=== PATIENT | female | born 1980 | race Caucasian/White ===

== ENCOUNTER 2017-02-26 14:27 | Emergency (ER) | payer SELFPAY ==
[2017-02-26 15:34] LABS: BACTERIA,URINE MOD /HPF (0-FEW); BILIRUBIN,URINE NEG (NEG); CLARITY,URINE HAZY; COLOR,URINE YELLOW; GLUCOSE,URINE NEG (NEG); NITRITE,URINE NEG (NEG); UROBILINOGEN,URINE 0.2 mg/dL (0.2 mg/dL); WBC,URINE >40 /HPF (0-4)
[2017-02-26 15:35] LABS: SQUAMOUS EPITHELIAL CELL,UR FEW /LPF; TRICHOMONAS,URINE PRESENT
[2017-02-26 15:54] VITALS: BP 127/73
[2017-02-26] MEDS ORDERED: LEVO500T59 PO (16:03)
[2017-02-26] MEDS ORDERED: PHEN100T82 PO (16:03)
--- NOTE | 2017-02-26 16:05 | PHYS DOC ---
General Chief Complaint: PAIN ON URINATION Stated Complaint: PAIN ON URINATION Time Seen by MD: 15:54 Problems: Departure Time of Disposition: 16:04 Disposition: 01 HOME, SELF-CARE Diagnosis: pyelonephritis Condition: STABLE Patient Instructions: Pyelonephritis, Adult, [id number] Additional Instructions: Aggressive hydration with Gatorade or water. [id number] Tylenol and ibuprofen as needed. Prescription: Levaquin, Pyridium Take meds with food. Follow-up with your doctor in 10-14 days for recheck and to go over urine culture results. Return to ED with new or changing symptoms. COMFORT OBRIEN DO Feb 26, 2017 16:05
[2017-02-26] MEDS ORDERED: PHENAZOPYRIDINE 200 MG TABLET. PO ONE (16:15)
[2017-02-26] MEDS ORDERED: ONDANSETRON ODT 4 MG TAB.RAPDIS PO ONE (16:15)
[2017-02-26] MEDS ORDERED: levoFLOXacin 500 MG TABLET PO ONE (16:15)
[2017-02-26] MEDS ORDERED: levoFLOXacin 500 MG TABLET ONE (16:34)
[2017-02-26] MEDS ORDERED: ONDANSETRON ODT 4 MG TAB.RAPDIS ONE (16:34)
[2017-02-26] MEDS ORDERED: PHENAZOPYRIDINE 200 MG TABLET. ONE (16:34)
== END 2017-02-26 16:39 | disposition home or self-care (01) ==
LOC: ER 14:27
DX: N12 Tubulo-interstitial nephritis, not specified as acute or chronic (principal)
CPT/HCPCS: 81001; 99284; Q0162